=== PATIENT | female | born 1990 | race Caucasian/White ===

== ENCOUNTER 2019-06-13 21:33 | Inpatient (IN) | payer BC ==
[~2019-06-13] VITALS: Ht 160 cm; Wt 68.1 kg
--- NOTE | 2019-06-13 21:45 | NUR ---
PT BIB [facility] WITH COMPLAINT OF SEIZURE WITH NO HX OF, PT FELL AND HAS SOME FACIAL FRACTURES AND A BRAIN MASS WAS NOTED ON MRI
[2019-06-13] MEDS ORDERED: [UNRECOGNIZED DRUG - REMARK] (21:56)
[2019-06-13] MEDS ORDERED: LEVETIRACETAM 500 MG in SODIUM CHLORIDE 0.9% 100 ML IV ONE (23:00)
[2019-06-13] MEDS ORDERED: DEXAMETHASONE 4 MG/ML, 1ML IVPush ONE (23:30)
[2019-06-13] MEDS ORDERED: ONDANSETRON 2MG/ML, 2ML IVPush PRN (23:30)
[2019-06-13] MEDS ORDERED: DEXAMETHASONE 4 MG/ML, 1ML ONE (23:35)
--- NOTE | 2019-06-14 00:02 | NUR ---
REPORT TO DANIELLE PT TO ICU WITH THIS RN AND TECH
[2019-06-14 00:30] VITALS: BP 107/72
[2019-06-14 04:00] VITALS: BP 100/64
[2019-06-14 04:44] LABS: MEAN CORPUSCULAR HEMOGLOBIN 31.1 pg (27.0-34.8); MEAN CORPUSCULAR HGB CONC 34.4 g/dL (32.4-35.8); MEAN CORPUSCULAR VOLUME 90.3 fL (80-100); MEAN PLATELET VOLUME 8.5 fL (7.4-10.4); PLATELET COUNT 339 x10^3/uL (130-400); RED BLOOD COUNT 4.26 x10^6/uL (3.82-5.3); RED CELL DISTRIBUTION WIDTH 12.6 % (9.6-15.2)
[2019-06-14 04:57] LABS: ANION GAP 8 mmol/L (5-15); CALCIUM 8.5 mg/dL (8.5-10.1); CHLORIDE 116 mmol/L (98-107)
[2019-06-14 04:58] LABS: CREATININE 0.99 mg/dL (0.55-1.02)
[2019-06-14 05:07] LABS: MICROSCOPIC NOT IND
[2019-06-14 05:10] LABS: CULTURE INDICATED? NO
[2019-06-14 05:50] LABS: BASOPHILS % (AUTO) 0 % (0-1); EOSINOPHILS % (AUTO) 0 % (1-7); LYMPHOCYTES # (AUTO) 0.48 x10^3/uL (1-3.4); LYMPHOCYTES % (AUTO) 5 % (22-44); MD SCAN; MONOCYTES # (AUTO) 0.05 x10^3/uL (0.2-0.8); MONOCYTES % (AUTO) 1 % (2-9); NEUTROPHILS % (AUTO) 95 % (42-75)
[2019-06-14] MEDS: LEVETIRACETAM 1,000 MG in SODIUM CHLORIDE 0.9% 100 ML IV SCH ×2 (09:11→20:15)
[2019-06-14] MEDS: DEXAMETHASONE 4 MG/ML, 1ML IV SCH ×3 (09:11→22:59)
[2019-06-14] MEDS: AMPICILLIN/SULBACTAM 3 GM in SODIUM CHLORIDE 0.9% 100 ML IV SCH ×3 (09:23→22:59)
[2019-06-14] MEDS ORDERED: LORazepam 2 MG/ML, 1ML IVPush PRN (13:00)
[2019-06-14] MEDS ORDERED: GADOTERATE 7.5 MMOL/15 ML SYR ONE (15:08)
[2019-06-14] MEDS: ACETAMINOPHEN 325 MG TABLET PO PRN (17:40)
[2019-06-15 04:00] VITALS: BP 88/46
[2019-06-15] MEDS: DEXAMETHASONE 4 MG/ML, 1ML IV SCH ×4 (04:55→22:51)
[2019-06-15] MEDS: AMPICILLIN/SULBACTAM 3 GM in SODIUM CHLORIDE 0.9% 100 ML IV SCH ×4 (04:55→22:51)
[2019-06-15] MEDS: LEVETIRACETAM 1,000 MG in SODIUM CHLORIDE 0.9% 100 ML IV SCH ×2 (08:40→20:40)
[2019-06-15] MEDS: ACETAMINOPHEN 325 MG TABLET PO PRN ×2 (13:37→20:44)
[2019-06-16 03:50] VITALS: BP 93/51
[2019-06-16] MEDS: AMPICILLIN/SULBACTAM 3 GM in SODIUM CHLORIDE 0.9% 100 ML IV SCH ×4 (04:29→22:53)
[2019-06-16] MEDS: DEXAMETHASONE 4 MG/ML, 1ML IV SCH ×4 (04:29→22:51)
[2019-06-16] MEDS: ACETAMINOPHEN 325 MG TABLET PO PRN ×4 (04:37→18:06)
[2019-06-16 04:54] LABS: BASOPHILS % (AUTO) 0 % (0-1); EOSINOPHILS % (AUTO) 0 % (1-7); LYMPHOCYTES # (AUTO) 0.45 x10^3/uL (1-3.4); LYMPHOCYTES % (AUTO) 5 % (22-44); MD NO; MEAN CORPUSCULAR HEMOGLOBIN 30.6 pg (27.0-34.8); MEAN CORPUSCULAR HGB CONC 33.8 g/dL (32.4-35.8); MEAN CORPUSCULAR VOLUME 90.7 fL (80-100); MEAN PLATELET VOLUME 8.9 fL (7.4-10.4); MONOCYTES # (AUTO) 0.48 x10^3/uL (0.2-0.8); MONOCYTES % (AUTO) 6 % (2-9); NEUTROPHILS # (AUTO) 7.53 x10^3/uL (1.8-6.8); NEUTROPHILS % (AUTO) 89 % (42-75); PLATELET COUNT 295 x10^3/uL (130-400); RED BLOOD COUNT 4.14 x10^6/uL (3.82-5.3); RED CELL DISTRIBUTION WIDTH 12.2 % (9.6-15.2)
[2019-06-16 04:55] LABS: ANION GAP 4 mmol/L (5-15); CALCIUM 7.7 mg/dL (8.5-10.1); CHLORIDE 111 mmol/L (98-107); CREATININE 0.81 mg/dL (0.55-1.02)
[2019-06-16] MEDS: LEVETIRACETAM 1,000 MG in SODIUM CHLORIDE 0.9% 100 ML IV SCH ×2 (10:15→21:01)
[2019-06-16 20:55] VITALS: BP 115/73
[2019-06-17] MEDS: DEXAMETHASONE 4 MG/ML, 1ML IV SCH ×2 (04:55→11:08)
[2019-06-17] MEDS: AMPICILLIN/SULBACTAM 3 GM in SODIUM CHLORIDE 0.9% 100 ML IV SCH ×2 (04:55→11:08)
[2019-06-17] MEDS: ACETAMINOPHEN 325 MG TABLET PO PRN ×3 (05:42→16:50)
[2019-06-17] MEDS: LEVETIRACETAM 1,000 MG in SODIUM CHLORIDE 0.9% 100 ML IV SCH (08:55)
[2019-06-17] MEDS: DEXAMETHASONE 4 MG TABLET PO SCH ×3 (11:30→23:50)
[2019-06-17 19:28] VITALS: BP 106/67
[2019-06-17] MEDS: AMOXICILLIN/CLAV 875-125MG TABLET PO SCH (21:16)
[2019-06-17] MEDS: LEVETIRACETAM 500 MG TABLET PO SCH (21:16)
[2019-06-18] MEDS: DEXAMETHASONE 4 MG TABLET PO SCH ×4 (05:33→23:34)
[2019-06-18] MEDS: LEVETIRACETAM 500 MG TABLET PO SCH ×2 (09:11→20:45)
[2019-06-18] MEDS: AMOXICILLIN/CLAV 875-125MG TABLET PO SCH ×2 (09:11→20:45)
[2019-06-18] MEDS: ACETAMINOPHEN 325 MG TABLET PO PRN ×2 (09:57→17:21)
[2019-06-18 12:18] LABS: ANION GAP 6 mmol/L (5-15); CHLORIDE 108 mmol/L (98-107)
[2019-06-18 12:19] LABS: CREATININE 0.87 mg/dL (0.55-1.02)
[2019-06-18 13:55] VITALS: BP 96/65
[2019-06-18 19:31] VITALS: BP 93/61
[2019-06-19 03:30] VITALS: BP 93/59
[2019-06-19] MEDS: DEXAMETHASONE 4 MG TABLET PO SCH ×2 (05:36→11:05)
[2019-06-19 07:35] VITALS: BP 101/64
[2019-06-19] MEDS: AMOXICILLIN/CLAV 875-125MG TABLET PO SCH (08:32)
[2019-06-19] MEDS: LEVETIRACETAM 500 MG TABLET PO SCH (08:32)
[2019-06-19] MEDS ORDERED: TRAM50TA2 PO (10:20)
[2019-06-19] MEDS ORDERED: DEXA4TAB66 PO (10:20)
[2019-06-19] MEDS ORDERED: AMOX1TAB12 PO (10:20)
[2019-06-19] MEDS ORDERED: ONDA4TAB7 PO (10:23)
[2019-06-19] MEDS ORDERED: LEVE500T8 PO (10:25)
[2019-06-19] MEDS ORDERED: FAMO-79 PO (10:29)
[2019-06-19 10:30] VITALS: BP 129/72
[2019-06-19] MEDS ORDERED: DEXAMETHASONE 1 MG TABLET ONE (11:04)
== END 2019-06-19 11:00 | disposition home or self-care (01) | DRG 146 ==
LOC: ED 06-14 00:05 → CCU 06-14 00:15 → 4EST 06-16 17:30
PROVIDERS: ADMIT Internal Medicine; ATTEND Hospitalist
DX: C30.0 Malignant neoplasm of nasal cavity (principal); G93.6 Cerebral edema; C71.9 Malignant neoplasm of brain, unspecified; S02.30XA Fracture of orbital floor, unspecified side, initial encounter for closed fracture; S02.40CA Maxillary fracture, right side, initial encounter for closed fracture; S02.40EA Zygomatic fracture, right side, initial encounter for closed fracture; R56.9 Unspecified convulsions; W19.XXXA Unspecified fall, initial encounter; W18.39XA Other fall on same level, initial encounter; R30.0 Dysuria; D72.829 Elevated white blood cell count, unspecified; Y93.89 Activity, other specified; Y92.89 Other specified places as the place of occurrence of the external cause; Y99.8 Other external cause status
CPT/HCPCS: 36415; 70450; 70553; 76380; 80048; 81003; 85025; 87081; 99291; G0378; J0295; J1100; J1953; A9575